=== PATIENT | female | born 1940 | race Caucasian/White ===

== ENCOUNTER 2016-10-16 19:56 | Emergency (ER) | payer SELFPAY ==
[~2016-10-16] VITALS: Ht 175.3 cm; Wt 86.2 kg
[2016-10-16 19:56] VITALS: BP 0/0
[~2016-10-16 19:56] MED LIST: CALCIUM CHLOR(10%) 100MG/ML 10ML SYRINGE IV ONE; DEXTROSE (50%) 50ML SYRG IV ONE; EPINEPHrine HCL 1 MG/10 ML SYRG IV ONE; SODIUM BICARBONATE 8.4% INJ 50ML SYRINGE IV ONE
== END 2016-10-16 23:30 | disposition expired ==
LOC: EDBD 19:56 → ER 20:00
DX: I46.9 Cardiac arrest, cause unspecified (principal); E11.9 Type 2 diabetes mellitus without complications; I10 Essential (primary) hypertension
CPT/HCPCS: 82962; 92950; 99285; J0171; J7042